=== PATIENT | male | born 1995 | race African-American/Black ===

== ENCOUNTER → 2017-02-18 | Outpatient (CLI) | payer OTHER ==
--- NOTE | 2017-02-18 14:10 | Diagnostic Imaging Report ---
PROCEDURE: MRI left joint lower extremity without contrast. TECHNIQUE: Multiplanar/multisequence noncontrast enhanced MRI of the left lower extremity was accomplished. INDICATION: Left knee pain. FINDINGS: There is significant subcutaneous edema seen around the knee, worse in the lateral aspect. This extends from and into the deep tissue planes in the popliteal fossa and could relate to a ruptured Harris's cyst medially as well. There is no intact Harris's cyst seen at this time. There is mild bone marrow contusion along the anterior aspect of the medial femoral condyle. The patella, tibia, and fibula demonstrate no contusion or fracture. The extensor mechanism is intact. There is a full-thickness tear of the ACL mid to distal fibers, likely related to an old injury based on the lack of significant bone marrow contusion. The PCL is intact. 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 There is intrasubstance increased signal which could be related to degeneration with a possible nondisplaced tear in its anterior aspect. The medial meniscus demonstrates prominent increased signal in the body of the meniscus with slight irregularity at the undersurface of the meniscus which could be a nondisplaced tear. The MCL appears intact. The lateral collateral ligament components demonstrate disruption of the distal biceps tendon and the fibular collateral ligament distally, compatible with a high-grade tear with retraction of about 1 cm. There is suggestion of a minimal bone plate avulsion of the superior margin of the fibula at the insertion site of the biceps tendon. The anterior component of the iliotibial band appears intact. The cartilage appears intact. IMPRESSION: 1. High-grade tear of the distal insertion of the biceps femoris and the fibular collateral ligament with approximately 1 cm of retraction. There is associated small avulsion fracture of the upper fibula at the insertion of the biceps tendon. Correlate with radiographs. 2. Likely old, ACL full-thickness tear. 3. Mild bone marrow contusion in the anterior aspect of the medial femoral condyle. 4. 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 5. Intrasubstance signal abnormality and slight irregularity of the undersurface of the body of the medial meniscus is also concerning for a nondisplaced tear. The findings were discussed with Dr. Rich on the phone by Dr. De Guzman at time of dictation. Dictated by: Dictated on workstation # [id number]
== END ==
LOC: RAD 10:31
PROVIDERS: ATTEND Orthopaedic Surgery
DX: M23.8X2 Other internal derangements of left knee (principal)
CPT/HCPCS: 73721